=== PATIENT | female | born 1970 | race Caucasian/White ===

== ENCOUNTER 2018-06-12 07:27 | Emergency (ER) | payer MEDICAID ==
[~2018-06-12] VITALS: Ht 162.6 cm; Wt 77.2 kg
[~2018-06-12 07:27] MED LIST: ALBU18HF2 IH; ALBU6.7H3 IH; EFF25T PO; FLO44IN IH; IBUP-1984 PO; LEVO75TA57 PO; NAPR-56 PO; SYN0.088T PO; VENL-191 PO
[2018-06-12] MEDS ORDERED: BENZ-16 PO (08:14)
[2018-06-12 08:29] VITALS: BP 135/86
== END 2018-06-12 08:31 | disposition home or self-care (01) ==
LOC: ER 07:28
DX: J06.9 Acute upper respiratory infection, unspecified (principal); J45.909 Unspecified asthma, uncomplicated; G89.29 Other chronic pain; F15.90 Other stimulant use, unspecified, uncomplicated; Z88.2 Allergy status to sulfonamides; Z88.1 Allergy status to other antibiotic agents; Z88.8 Allergy status to other drugs, medicaments and biological substances; Z79.899 Other long term (current) drug therapy
CPT/HCPCS: 99283

== ENCOUNTER 2018-08-10 23:10 | Emergency (ER) | payer MEDICAID ==
[~2018-08-10] VITALS: Ht 162.6 cm; Wt 75.0 kg
[2018-08-11] MEDS ORDERED: acetaminophen 325mg tablet PO ONE (00:05)
[2018-08-11 00:15] VITALS: BP 132/87
== END 2018-08-11 00:17 | disposition home or self-care (01) ==
LOC: ER 23:10
DX: S80.11XA Contusion of right lower leg, initial encounter (principal); M79.18 Myalgia, other site; J45.909 Unspecified asthma, uncomplicated; G89.29 Other chronic pain; F15.90 Other stimulant use, unspecified, uncomplicated; Z98.890 Other specified postprocedural states; Z88.2 Allergy status to sulfonamides; Z88.8 Allergy status to other drugs, medicaments and biological substances; Z88.1 Allergy status to other antibiotic agents; Z79.899 Other long term (current) drug therapy; W18.39XA Other fall on same level, initial encounter; Y93.89 Activity, other specified; Y92.89 Other specified places as the place of occurrence of the external cause; Y99.8 Other external cause status
CPT/HCPCS: 73590; 73610; 99283

== ENCOUNTER 2019-02-02 07:55 | Emergency (ER) | payer MEDICAID ==
[~2019-02-02] VITALS: Ht 162.6 cm; Wt 72.7 kg
[2019-02-02 08:00] VITALS: BP 136/102
[2019-02-02] MEDS ORDERED: BENZ-16 PO (08:20)
== END 2019-02-02 09:38 | disposition home or self-care (01) ==
LOC: ER 07:56
DX: J06.9 Acute upper respiratory infection, unspecified (principal); H92.03 Otalgia, bilateral; J45.909 Unspecified asthma, uncomplicated; G89.29 Other chronic pain; F31.9 Bipolar disorder, unspecified; F15.90 Other stimulant use, unspecified, uncomplicated; F10.99 Alcohol use, unspecified with unspecified alcohol-induced disorder; Z87.891 Personal history of nicotine dependence; Z98.890 Other specified postprocedural states; Z88.2 Allergy status to sulfonamides; Z88.1 Allergy status to other antibiotic agents; Z79.899 Other long term (current) drug therapy; Y90.9 Presence of alcohol in blood, level not specified
CPT/HCPCS: 71046; 99283

== ENCOUNTER 2019-05-19 08:20 | Emergency (ER) | payer MEDICAID ==
[~2019-05-19] VITALS: Ht 162.6 cm; Wt 79.2 kg
[2019-05-19 08:26] VITALS: BP 134/91
[2019-05-19] MEDS ORDERED: ipratropium/albuterol 3ml nebule NEB ONE (08:50)
[2019-05-19] MEDS ORDERED: predniSONE 20 mg tablet PO ONE (08:50)
[2019-05-19] MEDS ORDERED: AMOX-422 PO (09:10)
[2019-05-19] MEDS ORDERED: PRED20TA PO (09:10)
[2019-05-19] MEDS ORDERED: ALBU6.7H9 INH (09:10)
--- NOTE | 2019-05-19 09:37 | NUR ---
PT FEELING BETTER AFTER BREATHING TX.
== END 2019-05-19 09:38 | disposition home or self-care (01) ==
LOC: ER 08:21
DX: J18.9 Pneumonia, unspecified organism (principal); J45.909 Unspecified asthma, uncomplicated; G89.29 Other chronic pain; F15.90 Other stimulant use, unspecified, uncomplicated; Z87.891 Personal history of nicotine dependence; Z98.890 Other specified postprocedural states; Z88.2 Allergy status to sulfonamides; Z88.1 Allergy status to other antibiotic agents; Z79.899 Other long term (current) drug therapy
CPT/HCPCS: 71046; 94640; 99283; J7512; 94760

== ENCOUNTER 2021-01-22 16:38 | Emergency (ER) | payer MEDICAID ==
[~2021-01-22] VITALS: Ht 162.6 cm; Wt 82.0 kg
[~2021-01-22 16:38] MED LIST changes: +ALBU6.7H9 INH; -EFF25T PO; +VENL25TA48 PO
[2021-01-22 18:46] LABS: URINE HCG NEGATIVE (NEG)
[2021-01-22 18:47] LABS: BASOPHILS % (AUTO) 0.3 % (0-1); EOSINOPHILS % (AUTO) 0.2 % (0-6); HEMATOCRIT 40.3 % (35.0-45.0); HEMOGLOBIN 13.7 g/dl (12.0-16.0); LYMPHOCYTES # (AUTO) 1.2 X10'3 (1.1-4.8); LYMPHOCYTES % (AUTO) 20.4 % (21-51); MEAN CORPUSCULAR HEMOGLOBIN 28.4 PG (27.0-31.0); MEAN CORPUSCULAR HGB CONC 34.1 g/dL (33.0-36.5); MEAN CORPUSCULAR VOLUME 83.4 FL (78-98); MEAN PLATELET VOLUME 7.6 FL (7.4-10.4); MONOCYTES # (AUTO) 0.5 X10'3 (0-0.9); MONOCYTES % (AUTO) 9.5 % (2-12); NEUTROPHILS % (AUTO) 69.6 % (42-75); PLATELET COUNT 262 X10'3 (140-440); RED BLOOD COUNT 4.83 X10'6 (4.20-5.60); RED CELL DISTRIBUTION WIDTH 16.9 % (11.5-14.5); WHITE BLOOD COUNT 5.7 X10'3 (4.5-11.0)
[2021-01-22 18:54] LABS: ALANINE AMINOTRANSFERASE 48 U/L (12-78); ALBUMIN 3.5 G/DL (3.4-5.0); ALBUMIN/GLOBULIN RATIO 0.8 (1.1-1.5); ALKALINE PHOSPHATASE 96 IU/L (46-116); ANION GAP 18 (8-16); ASPARTATE AMINO TRANSFERASE 52 U/L (10-37); BILIRUBIN,TOTAL 0.6 MG/DL (0.1-1.0); BLOOD UREA NITROGEN 21 MG/DL (7-18); BUN/CREATININE RATIO 22.1 (6.6-38.0); CALCIUM 8.2 MG/DL (8.5-10.1); CHLORIDE 89 MMOL/L (99-107); CREATININE 0.95 MG/DL (0.40-0.90); ETHANOL 0.032 GM/DL (0.0-0.010); GLUCOSE 78 MG/DL (70-104); POTASSIUM 4.7 MMOL/L (3.5-5.1); SODIUM 127 MMOL/L (135-145); TOTAL CARBON DIOXIDE 19.8 MMOL/L (24-32); TOTAL PROTEIN 7.7 G/DL (6.4-8.2); eGFR 62 ML/MIN
[2021-01-22 19:06] LABS: URINE AMPHETAMINE SCREEN POSITIVE (Neg); URINE BARBITUATE SCREEN NEGATIVE (Neg); URINE BENZODIAZEPINES SCREEN NEGATIVE (Neg); URINE CANNABINOID SCREEN NEGATIVE (Neg); URINE COCAINE SCREEN NEGATIVE (Neg); URINE METHADONE SCREEN NEGATIVE (Neg); URINE OPIATE SCREEN NEGATIVE (Neg); URINE PHENCYCLIDINE SCREEN NEGATIVE (Neg)
[2021-01-22] MEDS ORDERED: normal saline 1000ml 1,000 ML IV ONE (19:40)
[2021-01-22] MEDS ORDERED: ondansetron/PF 4mg/2ml inj IV ONE (21:15)
[2021-01-22] MEDS ORDERED: LORazepam 2 mg/ml vial IV ONE (22:25)
[2021-01-22 23:08] VITALS: BP 148/90
--- NOTE | 2021-01-23 10:37 | NUR ---
Spoke to Karen, pt ride [phone]. Will roll picker in 1 hour
[2021-01-23] MEDS ORDERED: hydrOXYzine 25 MG tablet PO ONE (10:50)
== END 2021-01-23 11:29 | disposition home or self-care (01) ==
LOC: ER 16:38
DX: U07.1 COVID-19 (principal); R45.851 Suicidal ideations; J45.909 Unspecified asthma, uncomplicated; F31.9 Bipolar disorder, unspecified; G89.29 Other chronic pain; F15.10 Other stimulant abuse, uncomplicated; Z88.2 Allergy status to sulfonamides; Z88.1 Allergy status to other antibiotic agents; Z88.8 Allergy status to other drugs, medicaments and biological substances
CPT/HCPCS: 36415; 80053; 80305; 80320; 81025; 85025; 87635; 96361; 96374; 96375; 99285; C9803; J2060; J2405; J7030; Q0177

== ENCOUNTER 2024-08-16 03:54 | Emergency (ER) | payer MEDICAID ==
[~2024-08-16] VITALS: Ht 167.6 cm; Wt 145.0 kg
[~2024-08-16 03:54] MED LIST changes: +ALBU6.7H14 INH; -ALBU6.7H9 INH
[2024-08-16 04:03] VITALS: TEMP 98.1
[2024-08-16] MEDS: ondansetron/PF 4mg/2ml inj IV ONE (04:49)
[2024-08-16] MEDS: normal saline 1000ml 1,000 ML IV ONE (04:50)
[2024-08-16 05:12] LABS: BASOPHILS % (AUTO) 0.4 % (0-1); EOSINOPHILS # (AUTO) 0.1 X10'3 (0-0.9); EOSINOPHILS % (AUTO) 0.6 % (0-6); HEMATOCRIT 48.8 % (35.0-45.0); HEMOGLOBIN 16.8 g/dl (12.0-16.0); LYMPHOCYTES # (AUTO) 2.2 X10'3 (1.1-4.8); LYMPHOCYTES % (AUTO) 22.1 % (21-51); MEAN CORPUSCULAR HEMOGLOBIN 30.7 PG (27.0-31.0); MEAN CORPUSCULAR HGB CONC 34.4 g/dL (33.0-36.5); MEAN PLATELET VOLUME 8.3 FL (7.4-10.4); MONOCYTES # (AUTO) 1.2 X10'3 (0-0.9); MONOCYTES % (AUTO) 11.7 % (2-12); NEUTROPHILS # (AUTO) 6.6 X10'3 (1.8-7.7); NEUTROPHILS % (AUTO) 65.2 % (42-75); PLATELET COUNT 259 X10'3 (140-440); RED BLOOD COUNT 5.48 X10'6 (4.20-5.60); RED CELL DISTRIBUTION WIDTH 13.6 % (11.5-14.5); WHITE BLOOD COUNT 10.1 X10'3 (4.5-11.0)
[2024-08-16 05:21] LABS: ALANINE AMINOTRANSFERASE 37 U/L (12-78); ALBUMIN/GLOBULIN RATIO 1.2 (1.1-1.5); ALKALINE PHOSPHATASE 97 IU/L (46-116); ANION GAP 10 (8-16); ASPARTATE AMINO TRANSFERASE 28 U/L (10-37); BILIRUBIN,TOTAL 0.5 MG/DL (0.1-1.0); BLOOD UREA NITROGEN 24 MG/DL (7-18); BUN/CREATININE RATIO 20.2 (10.0-20.0); CALCIUM 8.6 MG/DL (8.5-10.1); CHLORIDE 99 MMOL/L (99-107); CREATININE 1.19 MG/DL (0.40-0.90); GLUCOSE 141 MG/DL (70-104); LIPASE 28 U/L (16-77); POTASSIUM 3.4 MMOL/L (3.5-5.1); SODIUM 141 MMOL/L (135-145); TOTAL PROTEIN 7.3 G/DL (6.4-8.2); eCRCL 49 ML/MIN; eGFR 47 ML/MIN
[2024-08-16] MEDS: diazepam 5mg tablet PO ONE (05:42)
[2024-08-16 06:30] VITALS: BP 142/94
[2024-08-16 07:26] LABS: ETHANOL 185 MG/DL (<10)
[2024-08-16 07:34] VITALS: PULSE 102; RESP 16; O2SAT 97
--- NOTE | 2024-08-16 07:35 | Physician Documentation ---
History of Present Illness ~ Chief Complaint: ETOH Stated Complaint: ETOH Time Seen by MD: 07:02 Primary Medical Doctor: [facility] Mode of Arrival: Ambulatory HPI 54-year-old female history of alcohol use disorder. Previously 14 year sober started drinking again heavily 4 days ago. She reports wanting help with quitting. She denies SI or HI Tetanus within 5 years?: Yes Medication Reconciliation Allergies: Coded Allergies: Sulfa (Sulfonamide Antibiotics) (Unverified Allergy, Unknown, 08/16/24) erythromycin base (Unverified Allergy, Unknown, 08/16/24) fluoxetine HCl (Unverified Allergy, Unknown, 08/16/24) Scheduled Albuterol Sulfate (Proventil Hfa), 6.7 GM IH QID Albuterol Sulfate (Ventolin Hfa), 2 PUFFS IH Q4H Albuterol Sulfate (Proventil Hfa), 2 PUFFS INH Q6H Ibuprofen* (Motrin*), 1-2 TAB PO Q8H Levothyroxine Sodium* (Levoxyl*), 100 MCG PO DAILY, (Reported) Levothyroxine Sodium* (Synthroid*), 1 TABLET PO DAILY Naproxen (Naproxen), 500 MG PO Q12H Venlafaxine Hcl* (Effexor*), 200 MG PO DAILY, (Reported) Venlafaxine Hcl* (Effexor*), 1 TABLET PO DAILY Scheduled PRN Ibuprofen* (Motrin*), 600 MG PO Q6H PRN Miscellaneous Medications Fluticasone Propionate (Flovent Hfa), 10.6 GM IH, (Reported) Past Medical History Past Medical History: Asthma, Hernia, Thyroid (unspecified), Chronic Pain, Bipolar Past Surgical History: abdominal surgery Other Past Family History: NONCONTRIBUTORY Alcohol Use: Sober Drug Use: methamphetamine Lives with: Mother Lives In: Other Occupation: student, disabled Review of Systems All Other Systems at this time: Reviewed and Negative Constitutional: Denies: fever ENT: Reports: no symptoms reported Respiratory: Denies: shortness of breath, SOB with exertion Cardiovascular: Denies: chest pain Gastrointestinal: Denies: abdominal pain Physical Exam Vital Signs: Temperature: 98.1, Source: Oral, Heart Rate: 101, Respiratory Rate: 16, BP: 142/94, Pulse Oximetry: 99, Weight: 145.000 Oxygen Flow Rate: 0 Physical Exam Well-appearing no distress standing in room anxious appearing Psych good eye contact good judgment normal speech Normal gait awake alert oriented Abdomen is soft nontender Progress Progress Note I doctor Russel received this patient in sign-out 7:30 a.m. I evaluated the patient. She is here for alcohol intoxication. She was initially feeling overwhelmed and anxious regarding her relapse and wanted help. However when I evaluated the patient she would like to be discharged so that she can leave and continued drinking. She is not ready to quit but when she is she would like to pursue a a which is which she used before. She will keep them in mind and she will return here if she would like medical treatment. She is not suicidal. I see no indication for holding her involuntarily and she is not clinically intoxicated despite a slightly elevated alcohol level . Her vitals are not concerning and she shows no signs of DTs. Regardless she plans to go and drink and I advised her that she may return at any time if she would like help. She unfortunately did not leave before collecting her paperwork but I did give her verbal instructions at bedside Results/Orders Results/Orders Medications Received in ER Medications (Trade) Dose Ordered Sig/Cesar Route PRN Reason Start Time Stop Time Status Last Admin Dose Admin Sodium Chloride 1,000 ml @ 1,000 mls/hr ONCE ONCE IV 08/16/24 04:45 08/16/24 05:44 DC 08/16/24 04:50 1,000 MLS/HR (Zofran 4mg/2ml vial) 4 mg ONCE ONCE IV 08/16/24 04:50 08/16/24 04:51 DC 08/16/24 04:49 4 MG (Valium tablet) 10 mg ONCE ONCE PO 08/16/24 05:30 08/16/24 05:31 DC 08/16/24 05:42 10 MG Vital Signs 08/16/24 08/16/24 08/16/24 08/16/24 04:03 05:44 06:03 06:30 Temp 98.1 Pulse 101 101 101 Resp 18 16 16 16 B/P (MAP) 145/83 142/99 (113) 142/94 (110) Pulse Ox 98 99 99 O2 Flow Rate 0 Laboratory Tests Test 08/16/24 04:54 White Blood Count 10.1 Red Blood Count 5.48 Hemoglobin 16.8 H Hematocrit 48.8 H Mean Corpuscular Volume 89.0 Mean Corpuscular Hemoglobin 30.7 Mean Corpuscular Hemoglobin Concent 34.4 Red Cell Distribution Width 13.6 Platelet Count 259 Mean Platelet Volume 8.3 Neutrophils (%) (Auto) 65.2 Lymphocytes (%) (Auto) 22.1 Monocytes (%) (Auto) 11.7 Eosinophils (%) (Auto) 0.6 Basophils (%) (Auto) 0.4 Neutrophils # (Auto) 6.6 Lymphocytes # (Auto) 2.2 Monocytes # (Auto) 1.2 H Eosinophils # (Auto) 0.1 Basophils # (Auto) 0.0 CBC Comment Sodium Level 141 Potassium Level 3.4 L Chloride Level 99 Carbon Dioxide Level 32.0 Anion Gap 10 Blood Urea Nitrogen 24 H Creatinine 1.19 H Estimated GFR/1.73 m2 47 BUN/Creatinine Ratio 20.2 H Glucose Level 141 H Calcium Level 8.6 Total Bilirubin 0.5 Aspartate Amino Transf (AST/SGOT) 28 Alanine Aminotransferase (ALT/SGPT) 37 Alkaline Phosphatase 97 Total Protein 7.3 Albumin 4.0 Globulin 3.3 Albumin/Globulin Ratio 1.2 Lipase 28 Chemistry Comments Ethyl Alcohol Level 185 H Medical Decision Making Differential Dx:Considerations: Intoxication - ETOH, Intoxication - other drug, Personality disorder Departure Disposition: 01 HOME / SELF CARE / HOMELESS Impression: Primary Impression: Alcoholic intoxication Qualified Codes: F10.920 - Alcohol use, unspecified with intoxication, uncomplicated Additional Instructions: As discussed please return if you would like any help with alcohol cessation or if you feel suicidal or a threat to herself. Otherwise please follow up with AA and your primary care physician Referrals: NO PRIMARY CARE PROVIDER (PCP) Signature Scribe Signature: No scribe Attestation: No scribe DHIRAJ PUENTE MD August 16, 2024 07:35
== END 2024-08-16 07:47 | disposition home or self-care (01) ==
LOC: ER 03:55
DX: F10.129 Alcohol abuse with intoxication, unspecified (principal); J45.909 Unspecified asthma, uncomplicated; F31.9 Bipolar disorder, unspecified; F15.90 Other stimulant use, unspecified, uncomplicated; Z88.2 Allergy status to sulfonamides; Z88.1 Allergy status to other antibiotic agents; Z79.899 Other long term (current) drug therapy; Y90.9 Presence of alcohol in blood, level not specified
CPT/HCPCS: 36415; 80053; 80320; 83690; 85025; 96361; 96374; 99283; J2405; J7030

== ENCOUNTER 2024-08-23 09:21 | Emergency (ER) | payer MEDICAID ==
[~2024-08-23] VITALS: Ht 160 cm; Wt 68.0 kg
[2024-08-23] MEDS: normal saline 1000ml 1,000 ML IV ONE (10:47)
[2024-08-23] MEDS: chlordiazePOXIDE 25mg capsule PO ONE (10:52)
[2024-08-23 10:58] LABS: BASOPHILS % (AUTO) 0.3 % (0-1); EOSINOPHILS # (AUTO) 0.1 X10'3 (0-0.9); EOSINOPHILS % (AUTO) 1.5 % (0-6); HEMATOCRIT 36.2 % (35.0-45.0); HEMOGLOBIN 12.4 g/dl (12.0-16.0); LYMPHOCYTES # (AUTO) 0.7 X10'3 (1.1-4.8); MEAN CORPUSCULAR HEMOGLOBIN 30.9 PG (27.0-31.0); MEAN CORPUSCULAR HGB CONC 34.3 g/dL (33.0-36.5); MEAN CORPUSCULAR VOLUME 89.9 FL (78-98); MEAN PLATELET VOLUME 7.6 FL (7.4-10.4); MONOCYTES # (AUTO) 0.5 X10'3 (0-0.9); MONOCYTES % (AUTO) 9.1 % (2-12); NEUTROPHILS # (AUTO) 3.9 X10'3 (1.8-7.7); NEUTROPHILS % (AUTO) 75.1 % (42-75); PLATELET COUNT 147 X10'3 (140-440); RED BLOOD COUNT 4.03 X10'6 (4.20-5.60); WHITE BLOOD COUNT 5.2 X10'3 (4.5-11.0)
[2024-08-23 11:12] LABS: APTT 25 SECONDS (22-32); PROTHROMBIN TIME 10.1 SECONDS (9.0-12.0)
[2024-08-23 11:24] LABS: ALANINE AMINOTRANSFERASE 41 U/L (12-78); ALBUMIN 2.7 G/DL (3.4-5.0); ALBUMIN/GLOBULIN RATIO 0.9 (1.1-1.5); ALKALINE PHOSPHATASE 87 IU/L (46-116); ANION GAP 5 (8-16); ASPARTATE AMINO TRANSFERASE 35 U/L (10-37); BILIRUBIN,TOTAL 0.5 MG/DL (0.1-1.0); BLOOD UREA NITROGEN 13 MG/DL (7-18); BUN/CREATININE RATIO 11.6 (10.0-20.0); CALCIUM 7.8 MG/DL (8.5-10.1); CHLORIDE 106 MMOL/L (99-107); CREATININE 1.12 MG/DL (0.40-0.90); ETHANOL < 10 MG/DL (<10); GLUCOSE 119 MG/DL (70-104); SODIUM 140 MMOL/L (135-145); TOTAL CARBON DIOXIDE 29.5 MMOL/L (24-32); TOTAL PROTEIN 5.6 G/DL (6.4-8.2); eCRCL 46 ML/MIN; eGFR 50 ML/MIN
--- NOTE | 2024-08-23 11:41 | Physician Documentation ---
History of Present Illness ~ Chief Complaint: See Chief Complaint Stated Complaint: POSS WITHDRAWALS Time Seen by MD: 09:48 Primary Medical Doctor: [facility] HPI 54-year-old female reports ER for alcohol withdrawals. Patient states she has been evaluated one week ago and was going to be admitted but patient states she left. Patient states she is currently in a a and states that she would like help with withdrawal symptoms. Patient has sponsors with her now. Denies seizures. States her last alcohol beverage was 48 hours ago. Currently denies SI, HI visual auditory hallucinations. No other complaints at this time Tetanus within 5 years?: Yes Medication Reconciliation Allergies: Coded Allergies: Sulfa (Sulfonamide Antibiotics) (Unverified Allergy, Unknown, 08/23/24) erythromycin base (Unverified Allergy, Unknown, 08/23/24) fluoxetine HCl (Unverified Allergy, Unknown, 08/23/24) Scheduled Albuterol Sulfate (Proventil Hfa), 6.7 GM IH QID Albuterol Sulfate (Ventolin Hfa), 2 PUFFS IH Q4H Albuterol Sulfate (Proventil Hfa), 2 PUFFS INH Q6H Ibuprofen* (Motrin*), 1-2 TAB PO Q8H Levothyroxine Sodium* (Levoxyl*), 100 MCG PO DAILY, (Reported) Levothyroxine Sodium* (Synthroid*), 1 TABLET PO DAILY Naproxen (Naproxen), 500 MG PO Q12H Venlafaxine Hcl* (Effexor*), 200 MG PO DAILY, (Reported) Venlafaxine Hcl* (Effexor*), 1 TABLET PO DAILY Scheduled PRN Ibuprofen* (Motrin*), 600 MG PO Q6H PRN Miscellaneous Medications Fluticasone Propionate (Flovent Hfa), 10.6 GM IH, (Reported) Past Medical History Past Medical History: Asthma, Hernia, Thyroid (unspecified), Chronic Pain, Bipolar Past Surgical History: abdominal surgery Other Past Family History: NONCONTRIBUTORY Alcohol Use: Sober Drug Use: methamphetamine Lives with: Mother Lives In: Other Occupation: student, disabled Physical Exam Vital Signs: Heart Rate: 93, Respiratory Rate: 15, BP: 137/88, Pulse Oximetry: 98, Weight: 68.050 Physical Exam General: Well developed, well nourished, no distress. HEENT: Atraumatic, normal conjunctiva, moist mucous membranes. Neck: Full range of motion, supple. Respiratory: Lungs clear, no respiratory distress. Chest: No accessory muscle use, nontender. Cardiovascular: Regular rate and rhythm. Gastrointestinal: Soft, nontender, nondistended. Bowel sounds present. Extremities: Normal range of motion, nontender, normal capillary refill, no deformity. Back: No midline tenderness, no CVA tenderness. Neurologic: Oriented x4. Distal gross motor and sensory intact all four extremities. Moves all 4 extremities spontaneously. Psychiatric: Normal mood and affect. Skin: Normal color, warm and dry. No edema, no ecchymosis Progress Results/Orders Results/Orders Completed Orders - MALIK DANIEL Cbc/Diff (08/23/24 10:19) Pt Inr (08/23/24 10:19) PTT (08/23/24 10:19) CMP (08/23/24 10:19) Ethanol (08/23/24 10:19) Chlordiazepoxide Capsule (Librium Capsul (08/23/24 10:20) Normal Saline 1000ml (Sodium Chloride 10 (08/23/24 10:20) Medications Received in ER Medications (Trade) Dose Ordered Sig/Cesar Route PRN Reason Start Time Stop Time Status Last Admin Dose Admin (Librium capsule) 25 mg ONCE ONCE PO 08/23/24 10:20 08/23/24 10:21 DC 08/23/24 10:52 25 MG Sodium Chloride 1,000 ml @ 1,000 mls/hr ONCE ONCE IV 08/23/24 10:20 08/23/24 11:19 DC 08/23/24 10:47 1,000 MLS/HR Vital Signs 08/23/24 08/23/24 09:23 10:02 Pulse 102 93 Resp 15 15 B/P (MAP) 148/96 137/88 (104) Pulse Ox 97 98 Laboratory Tests Test 08/23/24 10:52 White Blood Count 5.2 Red Blood Count 4.03 L Hemoglobin 12.4 Hematocrit 36.2 Mean Corpuscular Volume 89.9 Mean Corpuscular Hemoglobin 30.9 Mean Corpuscular Hemoglobin Concent 34.3 Red Cell Distribution Width 13.0 Platelet Count 147 Mean Platelet Volume 7.6 Neutrophils (%) (Auto) 75.1 H Lymphocytes (%) (Auto) 14.0 L Monocytes (%) (Auto) 9.1 Eosinophils (%) (Auto) 1.5 Basophils (%) (Auto) 0.3 Neutrophils # (Auto) 3.9 Lymphocytes # (Auto) 0.7 L Monocytes # (Auto) 0.5 Eosinophils # (Auto) 0.1 Basophils # (Auto) 0.0 CBC Comment Prothrombin Time 10.1 INR International Normalized Ratio 1.0 Activated Partial Thromboplast Time 25 Coagulation Comments Sodium Level 140 Potassium Level 4.0 Chloride Level 106 Carbon Dioxide Level 29.5 Anion Gap 5 L Blood Urea Nitrogen 13 Creatinine 1.12 H Estimated GFR/1.73 m2 50 BUN/Creatinine Ratio 11.6 Glucose Level 119 H Calcium Level 7.8 L Total Bilirubin 0.5 Aspartate Amino Transf (AST/SGOT) 35 Alanine Aminotransferase (ALT/SGPT) 41 Alkaline Phosphatase 87 Total Protein 5.6 L Albumin 2.7 L Globulin 2.9 Albumin/Globulin Ratio 0.9 L Chemistry Comments Ethyl Alcohol Level < 10 Medical Decision Making Additional info obtained from: old records Findings After detailed discussion and joint medical decision-making, diagnostic and imaging results were discussed with the patient. At this time patient we will be given Librium for detox purposes. Patient had blood work performed and she does have kidney disease but this isn't CAROLYN in his chronic. Patient will be advised to follow up with the primary care regarding her CKD. ER precautions given. Patient is stable upon discharge. All patient questions answered to satisfaction Differential Dx:Considerations: Include: Intoxication-Alcohol, Intoxication- Other drug, Personality disorder, Alcohol withdrawl syndrom, Encephalopathy, Other Departure Disposition: 01 HOME / SELF CARE / HOMELESS Impression: Primary Impression: Alcoholic intoxication Condition: Stable Discharge Instructions: Alcohol Intoxication, Alcohol Intoxication, E asy-to-Read Referrals: NO PRIMARY CARE PROVIDER (PCP) Prescriptions Chlordiazepoxide Hcl (Librium) 25 Mg Capsule 25 MG PO DIRECTED for alcohol withdrawl, #30 CAP 0 Refills Prov: MALIK DANIEL 08/23/24 Education Educated: Patient Educated regarding: diagnosis, treatment Signature Scribe Signature: none used Attestation: Scribed for Malik Daniel by Malik ZARAGOZA . 08/23/24 11:46 MALIK DANIEL August 23, 2024 11:41
[2024-08-23] MEDS ORDERED: CHLO25CA10 PO (11:45)
[2024-08-23 12:15] VITALS: BP 114/86; PULSE 80; RESP 14; O2SAT 97
== END 2024-08-23 12:17 | disposition home or self-care (01) ==
LOC: ER 09:22
DX: F10.129 Alcohol abuse with intoxication, unspecified (principal); J45.909 Unspecified asthma, uncomplicated; F31.9 Bipolar disorder, unspecified; F15.90 Other stimulant use, unspecified, uncomplicated; Z88.2 Allergy status to sulfonamides; Z88.1 Allergy status to other antibiotic agents; Z79.899 Other long term (current) drug therapy; Y90.9 Presence of alcohol in blood, level not specified
CPT/HCPCS: 36415; 80053; 80320; 85025; 85610; 85730; 96360; 99283; J7030; A4353